=== PATIENT | male | born 1955 | race Caucasian/White ===

== ENCOUNTER → 2022-09-13 | Outpatient (CLI) | payer MEDICARE, OTHER | LOC: M RAD 07:14 | PROVIDERS: ATTEND Nurse Practitioner Family | DX: Z87.891 Personal history of nicotine dependence (principal) ==

== ENCOUNTER 2023-07-06 10:07 | Day surgery (SDC) | payer MEDICARE, OTHER ==
[~2023-07-06] VITALS: Ht 177.8 cm; Wt 81.3 kg
[~2023-07-06 10:07] MED LIST: BAYE500T2 PO; NS 1,000 ML IV ONE; SIMV40TA20 PO
[2023-07-06] MEDS ORDERED: propofoL 200 MG/20 ML VIAL As Ordered ONE (11:12)
[2023-07-06] MEDS ORDERED: LIDOCAINE 2% 100MG/5ML SDV (FOR ANES.) As Ordered ONE (11:12)
[2023-07-06 12:24] VITALS: TEMP 96.9
[2023-07-06 12:45] VITALS: BP 140/93; O2SAT 96
== END 2023-07-06 12:58 | disposition home or self-care (01) ==
LOC: M OPP 10:07
PROVIDERS: ATTEND Internal Medicine Gastroenterology
DX: Z12.11 Encounter for screening for malignant neoplasm of colon (principal); Z86.010 Personal history of colon polyps; D12.0 Benign neoplasm of cecum; D12.4 Benign neoplasm of descending colon; K57.30 Diverticulosis of large intestine without perforation or abscess without bleeding; K64.8 Other hemorrhoids; F17.200 Nicotine dependence, unspecified, uncomplicated; Z79.02 Long term (current) use of antithrombotics/antiplatelets; Z79.82 Long term (current) use of aspirin